=== PATIENT | female | born 1945 | race Caucasian/White ===

== ENCOUNTER 2018-05-14 09:22 | Day surgery (SDC) | payer MEDICARE ==
[~2018-05-14] VITALS: Ht 162.6 cm; Wt 65.9 kg
[2018-05-14 09:30] VITALS: BP 174/77
[2018-05-14] MEDS ORDERED: ALBU8HFA PO (09:48)
[2018-05-14] MEDS ORDERED: fentaNYL/PF 50MCG/1 ML 2ML syringe ONE (10:01)
[2018-05-14] MEDS ORDERED: MIDAZolam 5mg/5ml vial ONE (10:01)
[2018-05-14 10:26] VITALS: BP 127/57
[2018-05-14 10:36] VITALS: BP 122/63
[2018-05-14 10:46] VITALS: BP 117/67
[2018-05-14 10:56] VITALS: BP 125/70
== END 2018-05-14 11:10 | disposition home or self-care (01) ==
LOC: GI LAB 09:22
PROVIDERS: ATTEND Internal Medicine Gastroenterology
DX: Z12.11 Encounter for screening for malignant neoplasm of colon (principal); K63.5 Polyp of colon; K57.30 Diverticulosis of large intestine without perforation or abscess without bleeding
CPT/HCPCS: 45380; 99153; G0500; J2250; J3010; J7030; 99152; A4620